=== PATIENT | female | born 1940 ===

== ENCOUNTER 2019-03-12 09:00 | Inpatient (IN) | payer OTHER ==
[~2019-03-12] VITALS: Ht 154.9 cm; Wt 59.0 kg
[2019-03-12] MEDS ORDERED: PROTONIX40 MG PO (11:37)
[2019-03-12] MEDS ORDERED: ZANTAC300 MG PO (11:37)
[2019-04-06] MEDS ORDERED: HYOSCYAMINE0.125 M1 SL (15:19)
[2019-04-06] MEDS ORDERED: INTESTINEX680 M1 PO (15:20)
[2019-04-06] MEDS ORDERED: OXYC1TAB9 PO (15:20)
== END 2019-04-06 16:03 | disposition home or self-care (01) | DRG 330 ==
LOC: ADM 09:00 → EDSTATUS 09:00 → RECOVERY 03-20 09:00 → SURH 04-03 06:15 → O/R 04-03 06:15 → RECOVERY 04-03 09:00 → SURH 04-03 13:24 → RECOVERY 04-03 14:00 → SURH 04-03 14:30
PROVIDERS: ADMIT Surgery
PROC: 07TB4ZZ Resection of Mesenteric Lymphatic, Percutaneous Endoscopic Approach (ICD-10-PCS; 2019-04-03)
PROC: 0DBU4ZZ Excision of Omentum, Percutaneous Endoscopic Approach (ICD-10-PCS; 2019-04-03)
PROC: 0DTF4ZZ Resection of Right Large Intestine, Percutaneous Endoscopic Approach (ICD-10-PCS; principal; 2019-04-03 14:00)
DX: D12.2 Benign neoplasm of ascending colon (principal); K43.0 Incisional hernia with obstruction, without gangrene; N20.0 Calculus of kidney; K29.60 Other gastritis without bleeding

== ENCOUNTER 2020-06-08 06:10 | Inpatient (IN) | payer OTHER ==
[~2020-06-08 06:10] MED LIST: HYOSCYAMINE0.125 M1 SL; INTESTINEX680 M1 PO; OXYC1TAB9 PO; PEPCID AC20 MG PO; PROTONIX40 MG PO; ZANTAC300 MG PO
[2020-06-08] MEDS ORDERED: [UNRECOGNIZED DRUG - OTHER] (15:46)
[2020-06-08] MEDS ORDERED: 8HR ARTHRITIS650 MG (15:46)
[2020-06-08] MEDS ORDERED: HEMORRHOIDAL (15:46)
[2020-06-08] MEDS ORDERED: BISACODYL5 MG (15:46)
[2020-06-08] MEDS ORDERED: [UNRECOGNIZED DRUG - OTHER] (15:47)
[2020-06-08] MEDS ORDERED: MUSCLE RUB ULT114 GM (15:47)
[2020-06-10] MEDS ORDERED: NEURONTIN300 MG PO (10:57)
[2020-06-10] MEDS ORDERED: 8 HOUR PAIN RE650 M1 PO (10:58)
[2020-06-10] MEDS ORDERED: KETO10TA2 PO (10:59)
== END 2020-06-10 15:59 | disposition home or self-care (01) | DRG 355 ==
LOC: CIR.AMB 06:10 → SURG 10:40 → O/R 10:40 → SURG 10:41 → CIR.AMB 12:30 → SURG 06-10 15:59
PROVIDERS: ADMIT Surgery; ATTEND Surgery
PROC: 0WUF4JZ Supplement Abdominal Wall with Synthetic Substitute, Percutaneous Endoscopic Approach (ICD-10-PCS; principal; 2020-06-08 12:30)
DX: K43.6 Other and unspecified ventral hernia with obstruction, without gangrene (principal); M06.8A Other specified rheumatoid arthritis, other specified site